=== PATIENT | female | born 1960 | race African-American/Black ===

== ENCOUNTER → 2020-01-28 | Outpatient (CLI) | payer MEDICAID ==
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
== END ==
LOC: KCIC MRI 13:32
PROVIDERS: ATTEND Family Medicine
DX: M50.321 Other cervical disc degeneration at C4-C5 level (principal); M47.813 Spondylosis without myelopathy or radiculopathy, cervicothoracic region; M47.817 Spondylosis without myelopathy or radiculopathy, lumbosacral region; M48.02 Spinal stenosis, cervical region; M25.78 Osteophyte, vertebrae
CPT/HCPCS: 72141; 72148